=== PATIENT | female | born 1935 | race Two or more races ===

== ENCOUNTER 2018-02-14 15:42 | Emergency (ER) | payer SELFPAY ==
[2018-02-14] MEDS ORDERED: ACYCLOVIR 400 MG TAB PO ONE (16:26)
--- NOTE | 2018-02-14 16:29 | EDPHY ---
H & P Stated Complaint: nontraumatic l shoulder/arm pain worse with movement Time Seen by Provider: 02/14/18 16:13 HPI/ROS: Chief Complaint: Left shoulder pain HPI: 82-year-old woman presenting with 2 days of worsening left shoulder pain. Family also noticed a rash behind her left shoulder. Denies any falls or recent traumatic injuries. Has not been able to sleep secondary to pain. No fevers or chills. She is able to move her arm but this does make the pain worse. ROS: 10 point Review of Systems is negative except as noted in the HPI. PMH: Social History: No smoking, no alcohol, no recreational drug use Family History: non-contributory Physical Exam: Gen: Awake, Alert, No Distress HEENT: Nose: no rhinorrhea Eyes: PERRLA, EOMI Mouth: Moist mucosa Neck: Supple, no JVD Back: no CVA tenderness, no midline tenderness she has a vesicular rash on an erythematous base a in the left side of her posterior shoulder consistent with shingles. It is tender to the touch. It is not confluent. Is not cellulitic. Ext: no edema, she has posterior left shoulder tenderness. She is able to abduct to 45 but any further abduction is painful. She has normal external and internal rotation. Elbow is normal. She has normal radial pulses. Sensations intact in the radial, median, and ulnar nerve distribution. Capillary refills less than 2 sec. Skin: per back exam Neuro: CN II-XII intact, Sensation grossly intact, Strength 5/5 in bilateral upper and lower extremities - Personal History Current Tetanus Diphtheria and Acellular Pertussis (TDAP): Yes - Medical/Surgical History Hx Asthma: No Hx Chronic Respiratory Disease: No Hx Diabetes: No Hx Cardiac Disease: No Hx Renal Disease: No Hx Cirrhosis: No Hx Alcoholism: No Hx HIV/AIDS: No Hx Splenectomy or Spleen Trauma: No Other PMH: hip/back prob - Social History Smoking Status: Never smoked Constitutional: Initial Vital Signs Temperature (C) 36.8 C 02/14/18 15:52 Heart Rate 62 02/14/18 15:52 Respiratory Rate 18 02/14/18 15:52 Blood Pressure 188/77 H 02/14/18 15:52 O2 Sat (%) 95 02/14/18 15:52 O2 Delivery Mode Room Air Allergies/Adverse Reactions: No Known Allergies Allergy (Unverified 02/14/18 15:51) Home Medications: Medication Instructions Recorded Acyclovir 800 mg PO 5XD #35 tab 02/14/18 Atorvastatin Calcium 02/14/18 Baclofen 02/14/18 Bisoprolol Fumarate 02/14/18 Gabapentin [Neurontin 300 MG (*)] 300 mg PO BID PRN #20 cap 02/14/18 Vicodin 5-300 mg Tablet 02/14/18 Medical Decision Making - Diagnostics Imaging Results: Imaging Impressions Shoulder X-Ray 02/14/18 16:24 Impression: 1. Nothing acute identified. 2. 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 - Data Points Medications Given: Discontinued Medications Hydrocodone Bitart/Acetaminophen ([place] 5/325) 2 tab PO EDNOW ONE Stop: 02/14/18 17:05 Last Admin: 02/14/18 17:19 Dose: Not Given Acyclovir (Acyclovir) 800 mg PO EDNOW ONE Stop: 02/14/18 16:27 Last Admin: 02/14/18 16:58 Dose: 800 mg Gabapentin (Neurontin) 300 mg PO EDNOW ONE Stop: 02/14/18 17:20 Last Admin: 02/14/18 17:20 Dose: 300 mg Departure - Departure Disposition: Home, Routine, Self-Care Clinical Impression: Shingles Condition: Good Instructions: Shingles (ED) Additional Instructions: May continue taking her usual [place] for pain. You may also take gabapentin for nerve pain. Please take her full course of antiviral medications. Follow up with your physicians at [facility] in 4-5 days for re-evaluation. Referrals: [facility],. [Clinic] - As per Instructions Prescriptions: Acyclovir 800 mg PO 5XD #35 tab Gabapentin [Neurontin 300 MG (*)] 300 mg PO BID PRN #20 cap PRN Reason: Pain, Breakthrough
[2018-02-14] MEDS ORDERED: HYDROCODONE/APAP 5/325 TAB PO ONE (17:04)
[2018-02-14] MEDS ORDERED: HYDROCODONE/APAP 5/325 TAB ONE ×2 (17:05)
[2018-02-14] MEDS ORDERED: GABAPENTIN 300 MG CAP ONE (17:17)
[2018-02-14] MEDS ORDERED: GABAPENTIN 300 MG CAP PO ONE (17:19)
[2018-02-14 17:56] VITALS: BP 185/82
== END 2018-02-14 17:55 | disposition home or self-care (01) ==
DX: B02.9 Zoster without complications (principal)